=== PATIENT | female | born 1960 | race Caucasian/White ===

== ENCOUNTER → 2025-06-16 15:20 | Outpatient (BNV) | payer MEDICARE, MEDICAID, SELFPAY | PROVIDERS: PCP Internal Medicine; Referring Provider Internal Medicine; Visit Provider Internal Medicine | DX: C21.0 Malignant neoplasm of anus, unspecified (principal); C77.5 Secondary and unspecified malignant neoplasm of intrapelvic lymph nodes; C79.51 Secondary malignant neoplasm of bone | CPT/HCPCS: 99205; G2211 ==

== ENCOUNTER 2025-07-14 09:20 | Outpatient (REF) | payer MEDICARE, SELFPAY ==
--- NOTE | ~2025-07-14 | CT_ITS ---
EXAMINATION: CT ABDOMEN PELVIS WITH IV CONTRAST HISTORY: Stage IV anal cancer, evaluate for recurrence COMPARISON: There are no prior studies for available comparison. TECHNIQUE: CT scan of the abdomen and pelvis was performed following administration of 85 mL Omnipaque 350 using standard departmental protocol. Coronal and sagittal reformatted images were generated and reviewed. This CT exam was performed with one or more of the following dose reduction techniques: automated exposure control, adjustment of the mA and/or kV according to patient size, use of iterative reconstruction technique. DLP: 62 1 mGy-cm FINDINGS: LOWER CHEST: See chest CT report from the same day. LIVER: The liver is normal in size and contour. No liver mass is identified. The hepatic and portal veins are patent. GALLBLADDER / BILE DUCTS: The gallbladder is unremarkable. There is no intra or extrahepatic biliary ductal dilatation. SPLEEN: The spleen is normal in size. No focal splenic lesion is identified. PANCREAS: The pancreas is unremarkable in appearance. ADRENAL GLANDS: Within normal limits. KIDNEYS/RETROPERITONEUM: 1.3 cm left renal cyst. No renal calculi are identified. There is no hydronephrosis. No renal masses are identified. LYMPH NODES: There are no enlarged lymph nodes. There are small bilateral inguinal lymph nodes. VASCULATURE: Normal. No aneurysm. MESENTERY/PERITONEUM: No free fluid. No masses. There is no free intraperitoneal gas. STOMACH: Normal SMALL BOWEL: The small bowel is normal in caliber. COLON: There is diffuse wall thickening of the colon suggestive of sunshine colitis. This is greatest in the distal colon. There is diffuse circumferential wall thickening of the rectum suggestive of proctitis. There is circumferential wall thickening of the anus. No focal lesion/mass appreciated. No evidence of obstruction. APPENDIX: Normal. URINARY BLADDER/PELVIC ORGANS: The urinary bladder is unremarkable. There are small calcifications in the right side of the uterus. No pelvic mass. BONES / SOFT TISSUES: Degenerative changes of the spine. No focal lesion. Diastases of the rectus muscles and multiple paraumbilical hernias containing fat. Fat stranding in the left lower abdominal wall, question related to previous surgery. 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 No mass seen. No enlarged lymph nodes. Multiple periumbilical hernias containing fat. Small left renal cyst. Electronically signed by: Korin Hamilton MD 07/14/2025 10:53 AM EDT
--- NOTE | ~2025-07-14 | CT_ITS ---
EXAMINATION: CT CHEST WITH CONTRAST CLINICAL INFORMATION: Stage IV anal cancer, evaluate for recurrence COMPARISON: None available. TECHNIQUE: Multidetector volumetric CT imaging of the chest was obtained after the administration of 50 mL of Omnipaque 350 intravenous contrast without immediate adverse reactions. Axial MIP volume rendering provided. Sagittal and coronal reformatted images were obtained. This CT examination was performed using dose optimization techniques as appropriate, variously including the following: *Automated exposure control *Adjustment of mA and/or kV according to patient size (this includes techniques or standardized protocols for targeted exams where dose is matched to indication/reason for exam; i.e. extremities or head) *Use of iterative reconstruction technique FINDINGS: LUNGS: Axial CT #4 Image 21: Right lateral apical subpleural nodule measures 5 x 8 mm. It has angular margins. Sagittal image 65: Posterior medial right apex solid nodule measures 5 x 8 mm. Image 20: Posterior right apical solid nodule measures 4 mm. MEDIASTINUM: There is a 10 mm low attenuating nodule deep in the left lobe of thyroid gland. PLEURA: There is no pleural effusion. No pleural mass or thickening. AXILLA: No lymphadenopathy. OSSEOUS STRUCTURES: No lytic or blastic lesions are evident. There are prominent enhancing paraspinal vessels in the lower cervical and upper thoracic spine. CT/CT chest w IV con IMPRESSION: 3 right apical solid pulmonary nodules are identified. Metastatic disease cannot be ruled out. 10 mm left thyroid nodule. Follow-up ultrasound for further characterization. Fleischner guidelines were followed. Electronically signed by: Jose Cosme MD 07/14/2025 10:46 AM EDT
[2025-07-14] MEDS: iohexoL 350 MG/ML 100 ML INFUS..BTL 85 ML IV (09:41)
--- OUTSIDE RECORDS SUMMARY | 2025-07-14 10:30 | XMS_ITS | Clinical Summary ---
Author Organization [employer] Address [address] [facility] [address] [place] [address] Care Team Providers Care Superintendent Drilling Name Role Phone Michelle Sheehan MD Primary Care Provide r Allergies No known active allergies Medications * This document contains information received from the source organization and may not represent a complete record from that organization. bisacodyl (Dulcolax) 5 MG EC tabletIndications :Slow transit constipation Take 1 tablet (5 mg) by mouth if needed each day for constipatio n. Do not crush, chew, or split. 30 tablet 3 06/02/2025 09/30/19 26 Active Calcium Carb-Cholecalcife rol (Calcium + Vitamin D3) 600-10 MG-MCG tabletIndications :Anal cancer (CMS/HCC) (HCC) Take 1 tablet by mouth Once per day. 90 tablet 1 06/02/2025 Active Active Problems Problem Noted Date Diagnosed Date Anal cancer (CMS/HCC) 06/02/2025 Assessment & Plan (06/02/2025 12:08 PM EDT): Patient has records I will refer her to hematology oncology in [facility] Diminished vision 06/02/2025 Assessment & Plan (06/02/2025 12:07 PM EDT): Will refer patient to optometry Slow transit constipation 06/02/2025 Assessment & Plan (06/02/2025 12:08 PM EDT): Counseling about diet to increase water and fiber and more frequent walks done today I will refill her Dulcolax Chronic bursitis of right shoulder 06/02/2025 Assessment & Plan (06/02/2025 12:08 PM EDT): I will order an x-ray and refer patient to orthopedics Primary osteoarthritis of right knee 06/02/2025 Assessment & Plan (06/02/2025 12:08 PM EDT): She may take for now acetaminophen as needed Encounters * This document contains information received from the source organization and may not represent a complete record from that organization. Date Type Department Care Team Description 06/22/[address] [id number] Michelle Sheehan MD dec recall 06/08/[address] [id number] Michelle Sheehan MD Referral 06/02/2025 10:15 AM EDT Office Visit [address] [id number] Michelle Sheeahn MD Primary osteoarthritis of right knee (Primary Dx); Anal cancer (CMS/HCC); Diminished vision; Slow transit constipation; Chronic bursitis of right shoulder 06/02/2025 Travel 05/28/[address] [address] Kavita Toro FNP [employer] from Last 3 Months Social History Tobacco Use Types Packs/Day Years Used Date Smoking Tobacco: Never Tobacco Cessation:Counseling Given: Not Answered Comments Unknown Sex and Gender Information Value Date Recorded Sex Assigned at Female 05/28/2025 8:37 AM EDT Legal Sex Female 11:34 AM EDT Gender Identity Female 05/28/2025 8:37 AM EDT Sexual Orientation Straight 05/28/2025 8: 37 AM EDT Last Filed Vital Signs Vital Sign Reading Time Taken Comments Blood Pressure 94/72 06/02/2025 10:15 AM EDT Pulse 75 06/02/2025 10:15 AM EDT Temperature 36 C (96.8 F) 06/02/2025 10:15 AM EDT Respiratory Rate 15 06/02/2025 10:15 AM EDT Oxygen Saturation 99% 06/02/2025 10:15 AM EDT Inhaled Oxygen Concentration - - Weight 66.2 kg (146 lb) 06/02/2025 10:15 AM EDT Height 157.5 cm (5' 2 ) 06/02/2025 10:15 AM EDT Body Mass Index 26.7 06/02/2025 10:15 AM EDT Plan of Treatment Upcoming Encounters Date Type Department Care Team (Late st Contact Info) Description 07/23/2025 11:15 AM EST Telemedicine [facility] [address] [place] [address] Michelle Sheehan MD [address] [place], [place] [phone] Health Maintenance Due Date Last Done Comments CT Colonography 1961 Colonoscopy 1961 Colorectal Cancer Screening 1961 Depression Screening 1961 FIT DNA/Cologuard 1961 FIT 1961 FOBT 1961 HIV Screening 1961 SDOH Screening 1961 Sigmoidoscopy 1961 Disability Screening 1961 Alcohol/Substance Use Screening 1973 Hepatitis C Screening 1979 DTaP/Tdap/Td Vaccines (1 - Tdap) 1980 Pap Smear 1982 Cervical Cancer Screening 1991 HPV/Cotest 1991 Mammogram 2001 Pneumococcal Vaccine: 50+ Ye ars (1 of 1 - PCV) 2011 Zoster Vaccines (1 of 2) 2011 COVID-19 Vaccine (1 - 2023-2 5 season) 2025 Influenza Vaccine (#1) 2025 Tobacco Screening 06/02/2026 06/02/2025 RSV Patients and Pa tients Aged 60 years or older (1 - 1-dose 75+ series) 2036 HIB Vaccines Aged Out No longer eligi ble based on patient's age to complete this topic HPV Vaccines Aged Out No longer eligi ble based on patient's age to complete this topic Hepatitis A Vaccines Aged Out No long er eligible based on patient's age to complete this topic Hepatitis B Vaccines Aged Out No long er eligible based on patient's age to complete this topic IPV Vaccines Aged Out No longer eligi ble based on patient's age to complete this topic Meningococcal B Vaccine Aged Out No l onger eligible based on patient's age to complete this topic Meningococcal Vaccine Aged Out No marie beny eligible based on patient's age to complete this topic RSV under 20 months Aged Out No longe r eligible based on patient's age to complete this topic Rotavirus Vaccines Aged Out No longer eligible based on patient's age to complete this topic Insurance MEDICARE Member Subscriber Plan / Payer ( fective 2025-Present) Name:Esther Borrero Member ID:[id number] Relation to Subscriber:Self Name:Esther Borrero Subscriber ID:[id number] Payer ID:STATE Group ID:Not on file Type:Medicare Address: [facility], [facility] [address] [address] [facility] Care Teams Superintendent Drilling Relationship Specialty Start Date End Date Michelle Sheehan MD [address] [place] [id number] PCP - General Internal Medicine 06/02/25
== END 2025-07-14 09:21 | disposition home or self-care (01) ==
LOC: HO.CT 09:20
PROVIDERS: PCP Internal Medicine; Visit Provider Internal Medicine
DX: C21.0 Malignant neoplasm of anus, unspecified (principal)
CPT/HCPCS: 71260; 74177; Q9967

== ENCOUNTER → 2025-07-14 09:24 | Outpatient (BNV) | payer MEDICARE, SELFPAY | PROVIDERS: PCP Internal Medicine; Visit Provider Radiology Diagnostic Radiology | DX: K42.9 Umbilical hernia without obstruction or gangrene (principal); N28.1 Cyst of kidney, acquired; R91.8 Other nonspecific abnormal finding of lung field; E04.1 Nontoxic single thyroid nodule | CPT/HCPCS: 71260; 74177 ==

== ENCOUNTER 2025-07-22 09:54 | Outpatient (AMB) | payer OTHER, SELFPAY ==
[2025-07-22 10:09] VITALS: BP 112/67; PULSE 112; BMI 26.2
--- NOTE | 2025-07-22 10:09 | MHC.OFFVIS ---
Vital Signs 07/22/25 10:09 Height 5 ft 2 in Weight 143 lb BMI 26.2 BP 112/67 Blood Pressure Location Rt brachial Position Sitting Pulse 112 H Intake Visit Reasons: stage 4 anal cancer & proctocolitis Intake Note: Patient referred by Dr. Jacobsen for assessment and treatment of Stage 4 anal CA and Proctocolitis. Patient c/o: recently moved to [facility] from [place]. Previous txt for anal CA in 2022. Treatment included radiation and chemotherapy. Last chemotherapy June 2024. Only completed 06/01 radiation treatments due to skin [place] on vagina area. Feels treatment did help. Reports last visit w/Dr. Mark Rodriguez HEM/ ONC 04-01-2025. Previous Colorectal surgeon Zaki Calix, last visit 03-03-2025. Hx of Colostomy 06-20-23, Flexible sigmoidoscopy 10-08-2023. Imaging: Chest CT & abdomen pelvis CT~ 07-14-2025 PCP: Michelle Vance Signals Analyst Required: Yes Accompanied by: Self / Same As Patient Allergies No Known Allergies Allergy (Verified 07/22/25 10:21) Medication List - Last Reconciled 07/22/25 by Saman Bush MD bisacodyl 5 mg PO DAILY calc-D3-mag yj-[id number]-gzso-Zn-col 600 mg-25 mcg- 50 mg 1 tab PO DAILY HPI HPI stage 4 anal cancer & proctocolitis: Details: [age] year old female referred for known anal cancer. She had been diagnosed to have squamous cell anal carcinoma in 2022 with a [place]. She had undergone chemotherapy and radiation. She had been noted to have bone metastasis at that time. Treatment was therefore palliative nature. She had moved to [place] in continued to have chemotherapy there until last year. She then here to [place] this year She says she was able to complete her chemotherapy but was unable to complete her radiation because of skin changes in the perineum She describes chronic constipation. She denies seeing blood per rectum. She says she has this chronic pelvic pain. She also complains of chronic pain in her anus. She did not have a colostomy in 2022 while undergoing treatments were squamous cell anal carcinoma. This was reversed last year in [place]. [facility] Medical History Colostomy care Squamous cell carcinoma of anal canal Family History Mother Stomach cancer Sister Cancer Sister Breast cancer Maternal Uncle Prostate CA Brother Lupus (systemic lupus erythematosus) Social History Household Members: Family Housing: House Patient Tobacco Use Status: Never used Tobacco service: No Current occupational status: disabled Review of Systems Const Denies chills and Denies fever(s) Card Denies chest pain, Denies dyspnea and Denies dyspnea on exertion Resp Denies cough, Denies dyspnea and Denies dyspnea on exertion GI Denies hematochezia, Denies change in bowel habits and Reports constipation Denies hematuria Musc Denies back pain and Denies limited range of motion Neuro Denies focal weakness and Denies convulsions Psych Denies depression and Denies mood swings Physical Exam Vital Signs: Last Vital Signs Pulse 112 H 07/22/25 10:09 BP 112/67 07/22/25 10:09 BMI result Body Mass Index 26.2 Const General: comfortable and no acute distress Orientation/consciousness: patient oriented x3 Neck Neck: Yes no lymphadenopathy Resp Auscultation: clear to auscultation bilaterally Cardio Rhythm: regular rhythm GI Other: No inguinal lymphadenopathy Rectal exam shows no perianal lesion Palpation (GI): Soft to palpation, nontender and no guarding Neuro General: patient oriented x3 Office Procedures Anoscopy She was in cruz-knife position. The anoscope was gently inserted. A full examination of the anal canal was done. There were no lesions seen within the reach of the anoscope. There was no ulceration or fissure. The anal lining appeared unremarkable although there was a little bit of what appeared to be mild fibrotic changes in the anal verge. There was no bleeding. [id number] Assessment & Plan Assessment & Plan (1) Anal squamous cell carcinoma: Code(s): C21.0 - Malignant neoplasm of anus, unspecified Category: Medical Plan: She has known metastatic anal squamous cell carcinoma. She had undergone treatment for this with chemotherapy and radiation Current anoscopy does not suggest any residual disease in the anus. She did have a CAT scan done last week showing suggestion of pulmonary nodules on the right side. This also suggested thickening of the rectum and the colon distally. Anoscopy does not suggest proctitis She denies any diarrhea. I would recommend keeping her up for the pulmonary nodules to see if this represents metastatic disease. With regards to the anus, I did not see any residual disease at this time I did tell her that I would see her again in the office in about 6 months and re-evaluate. In the meantime, we are assisting her in being seen by Dr. Jacobsen again. She seems to understand the plan well. Coding Level of Care Code New Pt Level 4 (50168) Diagnoses Anal squamous cell carcinoma C21.0 CPT Codes Details - CPT: 74548-Hhooptem ([id number])
== END 2025-07-22 10:53 | disposition home or self-care (01) ==
PROVIDERS: PCP Internal Medicine; Visit Provider Surgery
DX: C21.0 Malignant neoplasm of anus, unspecified (principal)
CPT/HCPCS: 46600; 99204

== ENCOUNTER → 2025-07-22 09:54 | Outpatient (BNVA) | payer OTHER, SELFPAY | PROVIDERS: PCP Internal Medicine; Visit Provider Surgery | DX: Z71.2 Person consulting for explanation of examination or test findings (principal); C21.0 Malignant neoplasm of anus, unspecified | CPT/HCPCS: 46600; 99202 ==

== ENCOUNTER 2025-07-23 12:30 | Outpatient (REF) | payer OTHER, SELFPAY ==
--- NOTE | ~2025-07-23 | US_ITS ---
EXAMINATION: US THYROID HISTORY: 10 mm thyroid nodule deep in the left thyroid gland TECHNIQUE: Real-time grayscale ultrasound imaging was performed and images were reviewed. COMPARISON: Correlation is made with a chest CT with contrast dated 07/14/2025. FINDINGS: SIZE: The right thyroid lobe measures 4.8 x 2.1 x 1.7 cm. The left thyroid lobe measures 4.2 x 2.1 x 1.7 cm. The isthmus measures 7 mm. FLOW: Flow to the gland is normal. ECHOGENICITY: The echotexture of the gland is homogeneous. NODULES: There is a 4 mm spongiform nodule in the midportion of the right thyroid lobe. There is a 14 x 8 x 9 mm cyst at the mid to lower pole of the left thyroid lobe corresponding to the abnormality noted on CT. No solid nodules are identified. US/US thyroid IMPRESSION: 14 x 8 x 9 mm cyst in the mid to lower pole of the left thyroid lobe corresponding to the abnormality noted on CT. No solid nodule is identified. ACR TI-RADS Guidelines TR1 (0 points): Benign. No follow-up or biopsy required TR2 (2 points): Not Suspicious. No biopsy or follow up indicated TR3 (3 points): Mildly Suspicious. FNA if >= 2.5 cm, Follow if >= 1.5 cm TR4 (4-6 points): Moderately Suspicious. FNA if >= 1.5 cm, Follow if >= 1.0 cm TR5 (>=7 points): Highly Suspicious. FNA if >= 1.0 cm, Follow if >= 0.5 cm Electronically signed by: Cristofer Haywood MD 07/23/2025 01:15 PM [facility]
--- OUTSIDE RECORDS SUMMARY | 2025-07-23 11:15 | XMS_ITS | Encounter Summary ---
Author Organization [employer] Address [address] [place] [address] [address] [place] [address] Care Team Providers Care Mussel Farmer Name Role Phone Michelle Sheehan MD Primary Care Provide r Reason for Referral * Consultation (Routine) - Authorized Specialty Diagnoses / Procedures Referred By Contac t Referred To Contact Orthopaedic Surgery Diagnoses Bilateral chronic knee pain Primary osteoarthritis of right knee Michelle Sheehan MD [address] [place] [phone] Phone: tel: fax: [facility] [place] Orth[facility] [address] [place] [address] Phone: tel: Referral ID Status Reason Start Date Expiration Date Visits Requested Visits Authorized [id number] Authorized Specialty Services Required 07/23/2025 07/23/2026 1 1 Encounter Details Date Type Department Care Team (Latest Contact Info) Description 07/23/2025 11:15 AM EST Telemedicine [facility] MEDICINE [address] [place] [phone] Michelle Sheehan MD [address] [place] [address] [phone] Anal cancer (CMS/HCC) (HCC) (Primary Dx); Bilateral chronic knee pain; Primary osteoarthritis of right knee; Chronic bursitis of right shoulder Social History Tobacco Use Types Packs/Day Years Used Date Smoking Tobacco: Never Depression Answer Date Recorded Patient Health Questionnaire-9 Score 1 07/23/2025 Patient Health Questionnaire-9 Score 1 07/23/2025 Last PHQ-9: Questionnaire Data Not on file 1 09/22/2024 Housing Stability Answer Date Recorded What is your housing situation today? I do not have housing (Staying with others, in a hotel, in a retirement, living outside on the street, on a beach, in a car, or in a park 07/23/[address] you li ve. Do you have problems with any of the following? I am not sure 07/23/2025 Food Insecurity Answer Date Recorded Within the past 12 months, y ou worried that your food would run out before you got money to buy more: Never True 07/23/2025 Within the past 12 months,th e food you bought just didn't last and you didn't have enough money to get more: Never True 02/2025 Transportation Answer Date Recorded In the past 12 months, has l ack of transportation kept you from medical appts, meetings, work or from getting things needed for daily living? No 07/23/2025 Utilities Answer Date Recorded In the past 12 months, has t he electric, gas, oil or water company threatened to shut off services in your home? I am not sure 07/23/2025 Depression Answer Date Recorded Patient Health Questionnaire-2 Score 1 07/23/2025 Internet Access Answer Date Recorded Internet Access Q1 I am not sure 07/23/2025 Internet Access Q2 Not on file 07/23/2025 Comments Unknown Sex and Gender Information Value Date Recorded Sex Assigned at Female 05/28/2025 8:37 AM EDT Legal Sex Female 11:34 AM EDT Gender Identity Female 05/28/2025 8:37 AM EDT Sexual Orientation Straight 05/28/2025 8: 37 AM EDT documented as of this encounter Functional Status * Over the past 2 weeks, how often have you been bothered by any of the following problems? Question Answer Date of Assessment Author Patient Health Questionnaire-2 Score 1 02/2025 11:09 AM Asya Villalobos MA * Little interest or pleasure in doing things Answer Date of Assessment Author Not at all 07/23/2025 11:09 AM Tristan Villalobos MA * Feeling down, depressed, or hopeless Answer Date of Assessment Author Several days 07/23/2025 11:09 AM Tristan Villalobos MA * Trouble falling or staying asleep, or sleeping too much Answer Date of Assessment Author Not at all 07/23/2025 11:09 AM Tristan Villalobos MA * Feeling tired or having little energy Answer Date of Assessment Author Not at all 07/23/2025 11:09 AM Tristan Villalobos MA * Poor appetite or overeating Answer Date of Assessment Author Not at all 07/23/2025 11:09 AM Tristan Villalobos MA * Feeling bad about yourself - or that you are a failure or have let yourself or your family down Answer Date of Assessment Author Not at all 07/23/2025 11:09 AM Tristan Villalobos MA * Trouble concentrating on things, such as reading the newspaper or watching television Answer Date of Assessment Author Not at all 07/23/2025 11:09 AM Tristan Villalobos MA * Moving or speaking so slowly that other people could have noticed? Or the opposite - being so fidgety or restless that you have been moving around a lot more than usual. Answer Date of Assessment Author Not at all 07/23/2025 11:09 AM Tristan Villalobos MA * Thoughts that you would be better off or hurting yourself in some way Answer Date of Assessment Author Not at all 07/23/2025 11:09 AM Tristan Villalobos MA * Patient Health Questionnaire-9 Score Answer Date of Assessment Author 1 07/23/2025 11:09 AM Tristan Villalobos MA * Over the last 2 weeks, how often have you been bothered by any of the following problems? Question Answer Date of Assessment Author Feeling nervous, anxious, or on edge 1 02/2025 11:08 AM Asya Villalobos MA Not being able to stop or co ntrol worrying 2 07/23/2025 11:08 AM Asya Villalobos MA Worrying too much about diff erent things 2 07/23/2025 11:08 AM Asya Villalobos MA Trouble relaxing 0 07/23/2025 11:08 AM Asya Villalobos MA Being so restless that it is hard to sit still 0 07/23/2025 11:08 AM Asya Villalobos MA Becoming easily annoyed or irritable 0 02/2025 11:08 AM Asya Villalobos MA Feeling afraid as if somethi ng awful might happen 0 07/23/2025 11:08 AM Asya Villalobos MA SHILPA-7 Total Score 5 07/23/2025 11:08 AM Asya Villalobos MA documented as of this encounter Progress Notes * Michelle Enciso MD - 07/23/2025 11:15 AM EST SUBJECTIVE: Esther Borrero is a 65 y.o. year old female who presents for Follow up . 65 year old female who is establishing care, past medical history significant for stage IV anal cancer diagnosed in April 2023 in [place]. 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 She was started on palliative chemotherapy with carboplatin/Taxol which she received for 3 months in [place]. She moved to [place] in July 2023 and she continued to receive treatment until May 2024. She underwent palliative radiation therapy to pelvic bones Acute Concerns: Patient is being follow now by hematology/oncology Dr Jacobsen, labs and imagines where done, she reports she feels well she does have some pain on her pelvic area (pelvic bones) no other complains Patient reports she has being having pain on her right shoulder an both knees for which she takes acetaminophen as needed Social History Social History Narrative Not on file Problem List[1] Anal cancer (CMS/HCC) (HCC) Diminished vision Slow transit constipation Chronic bursitis of right shoulder Primary osteoarthritis of right knee Bilateral chronic knee pain Family History[2] Review of Systems Constitutional: Negative. HENT: Negative. Respiratory: Negative. Cardiovascular: Negative. Musculoskeletal: Positive for arthralgias. Follow Up: Follow up in about 6 months (around 01/20/2026) for chronic conditions . Medications Ordered Prior to Encounter[3] Problem List Items Addressed This Visit Anal cancer (CMS/HCC) (HCC) - Primary Continue to follow with hematology/oncology Bilateral chronic knee pain Acetaminophen as needed Orthopedics referral Relevant Orders Referral to Orthopaedic Surgery Primary osteoarthritis of right knee Acetaminophen as needed Orthopedics referral Relevant Orders Referral to Orthopaedic Surgery Chronic bursitis of right shoulder Patient has an appointment with orthopedics on 09/04/25 I advise not to miss her appointment Acetaminophen as needed [1] Patient Active Problem List Diagnosis Anal cancer (CMS/HCC) (HCC) Diminished vision Slow transit constipation Chronic bursitis of right shoulder Primary osteoarthritis of right knee Bilateral chronic knee pain [2] No family history on file. [3] Current Outpatient Medications on File Prior to Visit Medication Sig Dispense Refill bisacodyl (Dulcolax) 5 MG EC tablet Take 1 tablet (5 mg) by mouth if needed each day for constipation. Do not crush, chew, or split. 30 tablet 3 Calcium Carb-Cholecalciferol (Calcium + Vitamin D3) 600-10 MG-MCG tablet Take 1 tablet by mouth Once per day. 90 tablet 1 No current facility-administered medications on file prior to visit. documented in this encounter Miscellaneous Notes * Assessment & Plan Note - Michelle Enciso MD - 07/23/2025 12:29 PM EST Associated Problem(s): Primary osteoarthritis of right knee Acetaminophen as needed Orthopedics referral * Assessment & Plan Note - Michelle Enciso MD - 07/23/2025 12:29 PM EST Associated Problem(s): Chronic bursitis of right shoulder Patient has an appointment with orthopedics on 09/04/25 I advise not to miss her appointment Acetaminophen as needed * Assessment & Plan Note - Michelle Enciso MD - 07/23/2025 12:28 PM EST Associated Problem(s): Bilateral chronic knee pain Acetaminophen as needed Orthopedics referral * Assessment & Plan Note - Michelle Enciso MD - 07/23/2025 12:28 PM EST Associated Problem(s): Anal cancer (CMS/HCC) (HCC) Continue to follow with hematology/oncology documented in this encounter Plan of Treatment Scheduled Referrals Name Type Priority Associated Diagnoses Orde r Schedule Referral to Orthopaedic Surgery Outpatient Referral Routine Bilateral chronic knee pain Primary osteoarthritis of right knee Expected: 07/23/2025 (Approximate), Expires: 07/23/2026 documented as of this encounter Visit Diagnoses Diagnosis Anal cancer (CMS/HCC) (HCC)- Primary Malignant neoplasm of anus, unspecified site Bilateral chronic knee pain Primary osteoarthritis of right knee Chronic bursitis of right shoulder documented in this encounter Additional Health Concerns Assessment Noted Time PHQ-9 Depression Total Score: 1 07/23/20 11:09 AM EST documented as of this encounter Care Teams Mussel Farmer Relationship Specialty Start Date End Date Michelle Sheehan MD [address] [place] [phone] PCP - General Internal Medicine 06/02/25 documented as of this encounter
--- OUTSIDE RECORDS SUMMARY | 2025-07-23 15:22 | XMS_ITS | Encounter Summary ---
Author Organization [employer] Address [address] [facility] [address] [place] [address] Care Team Providers Care Oxygen Therapy Teacher Name Role Phone Michelle Sheehan MD Primary Care Provide r Encounter Details Date Type Department Care Team (Latest Contact Info) Description 07/23/2025 Travel Social History Tobacco Use Types Packs/Day Years Used Date Smoking Tobacco: Never Depression Answer Date Recorded Patient Health Questionnaire-9 Score 1 07/23/2025 Patient Health Questionnaire-9 Score 1 07/23/2025 Last PHQ-9: Questionnaire Data Not on file 1 09/22/2024 Housing Stability Answer Date Recorded What is your housing situation today? I do not have housing (Staying with others, in a hotel, in a prison, living outside on the street, on a [...] Villalobos MA documented as of this encounter Plan of Treatment Not on file documented as of this encounter Visit Diagnoses Not on filedocumented in this encounter Additional Health Concerns Assessment Noted Time PHQ-9 Depression Total Score: 1 07/23/20 11:09 AM EST documented as of this encounter Care Teams Oxygen Therapy Teacher Relationship Specialty Start Date End Date Michelle Sheehan MD [address] [place] [address] PCP - General Internal Medicine 06/02/25 documented as of this encounter
--- OUTSIDE RECORDS SUMMARY | 2025-07-23 15:22 | XMS_ITS | Clinical Summary ---
Author Organization [employer] Address [address] [facility] [address] [place] [address] Care Team Providers Care Yarn Winder Name Role Phone Michelle Sheehan MD Primary [...] D3) 600-10 MG-MCG tabletIndications :Anal cancer (CMS/HCC) ([facility]) Take 1 tablet by mouth Once per day. 90 tablet 1 06/02/2025 Active Active Problems Problem Noted Date Diagnosed Date Bilateral chronic knee pain 07/23/2025 Assessment & Plan (07/23/2025 12:28 PM EST): Acetaminophen as needed Orthopedics referral Anal cancer (CMS/HCC) 06/02/2025 Assessment & Plan (07/23/2025 12:28 PM EST): Continue to follow with hematology/oncology Assessment & Plan (06/02/2025 12:08 PM EDT): Patient has records I will refer her to hematology oncology in [facility] 06/02/2025 Assessment & Plan (06/02/2025 12:07 PM EDT): Will refer patient to optometry Slow transit constipation 06/02/2025 Assessment & Plan (06/02/2025 12:08 PM EDT): Counseling about diet to increase water and fiber and more frequent walks done today I will refill her Dulcolax Chronic bursitis of right shoulder 06/02/2025 Assessment & Plan (07/23/2025 12:29 PM EST): Patient has an appointment with orthopedics on 09/04/25 I advise not to miss her appointment Acetaminophen as needed Assessment & Plan (06/02/2025 12:08 PM EDT): I will order an x-ray and refer patient to orthopedics Primary osteoarthritis of right knee 06/02/2025 Assessment & Plan (07/23/2025 12:29 PM EST): Acetaminophen as needed Orthopedics referral Assessment & Plan (06/02/2025 12:08 PM EDT): She may take for now acetaminophen as needed Encounters * This document contains information received from the source organization and may not represent a complete record from that organization. Date Type Department Care Team Description 07/23/2025 11:15 AM EST Telemedicine [facility] [address] [place] [phone] Michelle Sheehan MD Anal cancer (CMS/HCC) (HCC) (Primary Dx); Bilateral chronic knee pain; Primary osteoarthritis of right knee; Chronic bursitis of right shoulder 07/23/2025 Travel 07/14/2025 Orders Only [facility] External Provider, [facility] 06/22/2025 Telephone [facility] [address] [place] [phone] Michelle Sheehan MD dec recall 06/08/[address] [address] Michelle Sheehan MD Referral 06/02/2025 10:15 AM EDT Office Visit [facility] [address] [place] [address] Michelle Sheehan MD Primary osteoarthritis of right knee (Primary Dx); Anal cancer (CMS/HCC); Diminished vision; Slow transit constipation; Chronic bursitis of right shoulder 06/02/2025 Travel 05/28/2025 Telephone [facility] [address] [place] [address] Kavita Toro FNP [employer] SAL[employer] from Last 3 Months Social History Tobacco Use Types Packs/Day Years Used Date Smoking Tobacco: Never Tobacco Cessation:Counseling Given: Not Answered Depression Answer Date Recorded Patient Health Questionnaire-9 Score 1 07/23/2025 Patient Health Questionnaire-9 Score 1 07/23/2025 Last PHQ-9: Questionnaire Data Not on file 1 09/22/2024 Housing Stability Answer Date Recorded What is your housing situation today? I do not have housing (Staying with others, in a hotel, in a nursing home, living outside on the street, on a [...] 06/02/2025 10:15 AM EDT Plan of Treatment Health Maintenance Due Date Last Done Comments CT Colonography 1961 Colonoscopy 1961 Colorectal Cancer Screening 1961 FIT DNA/Cologuard 1961 FIT 1961 FOBT 1961 HIV Screening 1961 Sigmoidoscopy 1961 Hepatitis C Screening 1979 DTaP/Tdap/Td Vaccines (1 - Tdap) 1980 Pap Smear 1982 Cervical Cancer Screening 1991 HPV/Cotest 1991 Mammogram 2001 Pneumococcal Vaccine: 50+ Years (1 of 1 - PCV) 2011 Zoster Vaccines (1 of 2) 2011 COVID-19 Vaccine (1 - 2023-2 5 season) 2025 Influenza Vaccine (#1) 2025 Tobacco Screening 06/02/2026 06/02/2025 Alcohol/Substance Use Screening 07/23/2026 07/23/2025 Depression Screening 07/23/2026 07/23/2025, 07/23/2025 Disability Screening 07/23/2026 07/23/2025 SDOH Screening 07/23/2026 07/23/2025 RSV Patients and Patients Aged 60 years or older (1 - [...] on patient's age to complete this topic Procedures Procedure Name Priority Date/Time Associated Diagnosis Comments CT ABDOMEN PELVIS W CONTRAST Routine 07/14/2025 9:[address] CHEST W CONTRAST Routine 07/14/2025 9 :52 AM EDT from Last 3 Months Results * CT Abdomen Pelvis w/ Contrast (07/14/2025 9:52 AM EDT) Anatomical Region Laterality Modality Body, Pelvis, Abdomen Computed T omography 07/14/2025 9:52 AM EDT Narrative 07/14/2025 10:56 AM EDT [place] [address] CT Scan Report Signed with Fabiola Patient: Esther Borrero MR#: [id number] : 1960 Acct:[id number] Age/Sex: 65 / F ADM Date: 07/14/25 Loc: HO.CT Attending Dr: Tiarra Jacobsen MD Ordering Physician: Tiarra Jacobsen MD Date of Service: 07/14/25 Procedure(s): CT abdomen pelvis w IV con Accession Number(s): [id number] cc: Michelle Sheehan MD; Tiarra Jacobsen MD Report Number: [id number]: Total DLP = 0.00 mGy-cm Reason for Exam: Stage IV anal cancer, evaluate for recurrence ADDENDUM ADDENDUM #1 Addendum: There is increased soft tissue seen in the left pelvis posterior to the left lower rectum and abutting the left levator ani muscle measuring 2.4 x 3.9 cm axial image 576 series 4. This is worrisome for recurrent disease. This could be further evaluated with pelvic MRI if clinically warranted. Electronically signed by: Korin Hamilton MD 07/23/2025 02:05 PM [facility] Addendum Dictated By: Korin Hamilton MD Addendum Signed By: <Electronically signed by Korin Hamilton MD in OV> 07/23/25 1405 Addendum Cosigned By: DD/ TD/TT: 07/14/25 EXAMINATION: CT ABDOMEN PELVIS WITH IV CONTRAST HISTORY: Stage IV anal cancer, evaluate for recurrence COMPARISON: There are no prior studies for available comparison. TECHNIQUE: CT scan of the abdomen and pelvis was performed following administration of 85 mL Omnipaque 350 using standard departmental protocol. Coronal and sagittal reformatted images were generated and reviewed. This CT exam was performed with one or more of the following dose reduction techniques: automated exposure control, adjustment of the mA and/or kV according to patient size, use of iterative reconstruction technique. DLP: 62 1 mGy-cm FINDINGS: LOWER CHEST: See chest CT report from the same day. LIVER: The liver is normal in size and contour. No liver mass is identified. The hepatic and portal veins are patent. GALLBLADDER / BILE DUCTS: The gallbladder is unremarkable. There is no intra or extrahepatic biliary ductal dilatation. SPLEEN: The spleen is normal in size. No focal splenic lesion is identified. PANCREAS: The pancreas is unremarkable in appearance. ADRENAL GLANDS: Within normal limits. KIDNEYS/RETROPERITONEUM: 1.3 cm left renal cyst. No renal calculi are identified. There is no hydronephrosis. No renal masses are identified. LYMPH NODES: There are no enlarged lymph nodes. There are small bilateral inguinal lymph nodes. VASCULATURE: Normal. No aneurysm. MESENTERY/PERITONEUM: No free fluid. No masses. There is no free intraperitoneal gas. STOMACH: Normal SMALL BOWEL: The small bowel is normal in caliber. COLON: There is diffuse wall thickening of the colon suggestive of sunshine colitis. This is greatest in the distal colon. There is diffuse circumferential wall thickening of the rectum suggestive of proctitis. There is circumferential wall thickening of the anus. No focal lesion/mass appreciated. No evidence of obstruction. APPENDIX: Normal. URINARY BLADDER/PELVIC ORGANS: The urinary bladder is unremarkable. There are small calcifications in the right side of the uterus. No pelvic mass. BONES / SOFT TISSUES: Degenerative changes of the spine. No focal lesion. Diastases of the rectus muscles and multiple paraumbilical hernias containing fat. Fat stranding in the left lower abdominal wall, question related to previous surgery. 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 No mass seen. No enlarged lymph nodes. Multiple periumbilical hernias containing fat. Small left renal cyst. Electronically signed by: Korin Hamilton MD 07/14/2025 10:53 AM EDT Dictated By: Korin Hamilton MD Signed By: <Electronically signed by Korin Hamilton MD in OV> 07/14/25 1053 DD/ 0952 TD/TT: 07/14/25 1034 Electric Car Operator: JOHNATHON Procedure Note Donotuseinterpreter, Image - 07/23/[address] [place] [address] [address] Scan Report Signed with Addenda Patient: Esther Borrero#: [id number] : 1960cct:[id number] Age/Sex: 65 / FADM Date: 07/14/25 Loc: HO.CT Attending Dr: Tiarra Jacobsen MD Ordering Physician: Tiarra Jacobsen MD Date of Service: 07/14/25 Procedure(s): CT abdomen pelvis w IV con Accession Number(s): [id number] cc: Michelle Sheehan MD; Tiarra Jacobsen MD Report Number: [id number]: Total DLP = 0.00 mGy-cm Reason for Exam: Stage IV anal cancer, evaluate for recurrence ADDENDUM ADDENDUM #1 Addendum: There is increased soft tissue seen in the left pelvis posterior to the left lower rectum and abutting the left levator ani muscle measuring 2.4 x 3.9 cm axial image 576 series 4. This is worrisome for recurrent disease. This could be further evaluated with pelvic MRI if clinically warranted. Electronically signed by: Korin Hamilton MD 07/23/2025 02:05 PM [facility] Addendum Dictated By: Korin Hamilton MD Addendum Signed By: <Electronically signed by Korin Hamilton MD in OV> 07/23/25 1405 Addendum Cosigned By: DD/ TD/TT: 07/14/25 EXAMINATION: CT ABDOMEN PELVIS WITH IV CONTRAST HISTORY: Stage IV anal cancer, evaluate for recurrence COMPARISON: There are no prior studies for available comparison. TECHNIQUE: CT scan of the abdomen and pelvis was performed following administration of 85 mL Omnipaque 350 using standard departmental protocol. Coronal and sagittal reformatted images were generated and reviewed. This CT exam was performed with one or more of the following dose reduction techniques: automated exposure control, adjustment of the mA and/or kV according to patient size, use of iterative reconstruction technique. DLP: 62 1 mGy-cm FINDINGS: LOWER CHEST: See chest CT report from the same day. LIVER: The liver is normal in size and contour. No liver mass is identified. The hepatic and portal veins are patent. GALLBLADDER / BILE DUCTS: The gallbladder is unremarkable. There is no intra or extrahepatic biliary ductal dilatation. SPLEEN: The spleen is normal in size. No focal splenic lesion is identified. PANCREAS: The pancreas is unremarkable in appearance. ADRENAL GLANDS: Within normal limits. KIDNEYS/RETROPERITONEUM: 1.3 cm left renal cyst. No renal calculi are identified. There is no hydronephrosis. No renal masses are identified. LYMPH NODES: There are no enlarged lymph nodes. There are small bilateral inguinal lymph nodes. VASCULATURE: Normal. No aneurysm. MESENTERY/PERITONEUM: No free fluid. No masses. There is no free intraperitoneal gas. STOMACH: Normal SMALL BOWEL: The small bowel is normal in caliber. COLON: There is diffuse wall thickening of the colon suggestive of sunshine colitis. This is greatest in the distal colon. There is diffuse circumferential wall thickening of the rectum suggestive of proctitis. There is circumferential wall thickening of the anus. No focal lesion/mass appreciated. No evidence of obstruction. APPENDIX: Normal. URINARY BLADDER/PELVIC ORGANS: The urinary bladder is unremarkable. There are small calcifications in the right side of the uterus. No pelvic mass. BONES / SOFT TISSUES: Degenerative changes of the spine. No focal lesion. Diastases of the rectus muscles and multiple paraumbilical hernias containing fat. Fat stranding in the left lower abdominal wall, question related to previous surgery. 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 No mass seen. No enlarged lymph nodes. Multiple periumbilical hernias containing fat. Small left renal cyst. Electronically signed by: Korin Hamilton MD 07/14/2025 10:53 AM EDT Dictated By: Korin Hamilton MD Signed By: <Electronically signed by Korin Hamilton MD in OV> 07/14/25 1053 DD/ 0952 TD/TT: 07/14/25 1034 Electric Car Operator: JOHNATHON [facility] External Provider IMG CT PROCEDURES Edited Result - Final * CT Chest w/ Contrast (07/14/2025 9:52 AM EDT) Anatomical Region Laterality Modality Body, Chest Computed Tomogra phy 07/14/2025 9:52 AM EDT Narrative 07/14/2025 10:49 AM EDT [address] [address] [address] Scan Report Signed Patient: Esther Borrero MR#: [id number] : 1960 Acct:[id number] Age/Sex: 65 / F ADM Date: 07/14/25 Loc: HO.CT Attending Dr: Tiarra Jacobsen MD Ordering Physician: Tiarra Jacobsen MD Date of Service: 07/14/25 Procedure(s): CT chest w IV con Accession Number(s): [id number] cc: Michelle Sheehan MD; Tiarra Jacobsen MD Report Number: [id number]: Total DLP = 795.00 mGy-cm Reason for Exam: Stage IV anal cancer, evaluate for recurrence EXAMINATION: CT CHEST WITH CONTRAST CLINICAL INFORMATION: Stage IV anal cancer, evaluate for recurrence COMPARISON: None available. TECHNIQUE: Multidetector volumetric CT imaging of the chest was obtained after the administration of 50 mL of Omnipaque 350 intravenous contrast without immediate adverse reactions. Axial MIP volume rendering provided. Sagittal and coronal reformatted images were obtained. This CT examination was performed using dose optimization techniques as appropriate, variously including the following: *Automated exposure control *Adjustment of mA and/or kV according to patient size (this includes techniques or standardized protocols for targeted exams where dose is matched to indication/reason for exam; i.e. extremities or head) *Use of iterative reconstruction technique FINDINGS: LUNGS: Axial CT #4 Image 21: Right lateral apical subpleural nodule measures 5 x 8 mm. It has angular margins. Sagittal image 65: Posterior medial right apex solid nodule measures 5 x 8 mm. Image 20: Posterior right apical solid nodule measures 4 mm. MEDIASTINUM: There is a 10 mm low attenuating nodule deep in the left lobe of thyroid gland. PLEURA: There is no pleural effusion. No pleural mass or thickening. AXILLA: No lymphadenopathy. OSSEOUS STRUCTURES: No lytic or blastic lesions are evident. There are prominent enhancing paraspinal vessels in the lower cervical and upper thoracic spine. CT/CT chest w IV con IMPRESSION: 3 right apical solid pulmonary nodules are identified. Metastatic disease cannot be ruled out. 10 mm left thyroid nodule. Follow-up ultrasound for further characterization. Fleischner guidelines were followed. Electronically signed by: Jose Cosme MD 07/14/2025 10:46 AM EDT Dictated By: Jose Cosme MD Signed By: <Electronically signed by Jose Cosme MD in OV> 07/14/25 1046 DD/ 0952 TD/TT: 07/14/25 1034 Electric Car Operator: Procedure Note Donotuseinterpreter, Image - 07/14/[address] [address] [address] Scan Report Signed Patient: Esther BorreroMR#: [id number] : 1960cct:[id number] Age/Sex: 65 / FADM Date: 07/14/25 Loc: HO.CT Attending Dr: Tiarra Jacobsen MD Ordering Physician: Tiarra Jacobsen MD Date of Service: 07/14/25 Procedure(s): CT chest w IV con Accession Number(s): [id number] cc: Michelle Sheehan MD; Tiarra Jacobsen MD Report Number: [id number]: Total DLP = 795.00 mGy-cm Reason for Exam: Stage IV anal cancer, evaluate for recurrence EXAMINATION: CT CHEST WITH CONTRAST CLINICAL INFORMATION: Stage IV anal cancer, evaluate for recurrence COMPARISON: None available. TECHNIQUE: Multidetector volumetric CT imaging of the chest was obtained after the administration of 50 mL of Omnipaque 350 intravenous contrast without immediate adverse reactions. Axial MIP volume rendering provided. Sagittal and coronal reformatted images were obtained. This CT examination was performed using dose optimization techniques as appropriate, variously including the following: *Automated exposure control *Adjustment of mA and/or kV according to patient size (this includes techniques or standardized protocols for targeted exams where dose is matched to indication/reason for exam; i.e. extremities or head) *Use of iterative reconstruction technique FINDINGS: LUNGS: Axial CT #4 Image 21: Right lateral apical subpleural nodule measures 5 x 8 mm. It has angular margins. Sagittal image 65: Posterior medial right apex solid nodule measures 5 x 8 mm. Image 20: Posterior right apical solid nodule measures 4 mm. MEDIASTINUM: There is a 10 mm low attenuating nodule deep in the left lobe of thyroid gland. PLEURA: There is no pleural effusion. No pleural mass or thickening. AXILLA: No lymphadenopathy. OSSEOUS STRUCTURES: No lytic or blastic lesions are evident. There are prominent enhancing paraspinal vessels in the lower cervical and upper thoracic spine. CT/CT chest w IV con IMPRESSION: 3 right apical solid pulmonary nodules are identified. Metastatic disease cannot be ruled out. 10 mm left thyroid nodule. Follow-up ultrasound for further characterization. Fleischner guidelines were followed. Electronically signed by: Jose Cosme MD 07/14/2025 10:46 AM EDT Dictated By: Jose Cosme MD Signed By: <Electronically signed by Jose Cosme MD in OV> 07/14/25 1046 DD/ 0952 TD/TT: 07/14/25 1034 Electric Car Operator: [facility] External Provider IMG CT PROCEDURES Final Result from Last 3 Months Insurance [facility] < [address] [id number] Care Teams Yarn Winder Relationship Specialty Start Date End Date Michelle Sheehan MD [address] [place] [phone] PCP - General Internal Medicine 06/02/25
== END 2025-07-23 12:31 | disposition home or self-care (01) ==
LOC: HO.US 12:30
PROVIDERS: Visit Provider Nurse Practitioner Family
DX: E04.1 Nontoxic single thyroid nodule (principal)
CPT/HCPCS: 76536

== ENCOUNTER → 2025-07-23 12:32 | Outpatient (BNV) | payer OTHER, SELFPAY | PROVIDERS: Visit Provider Radiology Diagnostic Radiology | DX: E04.1 Nontoxic single thyroid nodule (principal) | CPT/HCPCS: 76536 ==

== ENCOUNTER → 2025-07-27 13:35 | Outpatient (BNV) | payer OTHER, SELFPAY | PROVIDERS: Visit Provider Radiology Diagnostic Radiology | DX: C21.0 Malignant neoplasm of anus, unspecified (principal) | CPT/HCPCS: 72197 ==

== ENCOUNTER 2025-07-27 13:48 | Outpatient (REF) | payer OTHER, SELFPAY ==
--- OUTSIDE RECORDS SUMMARY | 2025-07-23 11:15 | XMS_ITS | Encounter Summary ---
Author Organization [employer] Address [address] [place] [address] [address] [place] [address] Care Team Providers Care Electric Relay Tester Name Role Phone Michelle Sheehan MD Primary Care Provide r Reason for Referral * Consultation (Routine) - Authorized Specialty Diagnoses / Procedures Referred By Contac t Referred To Contact Orthopaedic Surgery Diagnoses Bilateral chronic knee pain Primary osteoarthritis of right knee Michelle Sheehan MD [address] [place] [phone] Phone: tel: fax: [facility] [place] Orth[facility] [address] [place] [address] Phone: tel: Referral ID Status Reason Start Date Expiration Date Visits Requested Visits Authorized [id number] Authorized Specialty Services Required 07/23/2025 07/23/2026 1 1 Encounter Details Date Type Department Care Team (Latest Contact Info) Description 07/23/2025 11:15 AM EST Telemedicine [facility] MEDICINE [address] [place] [phone] Michelle Sheehan MD [address] [place] [address] [phone] Anal cancer (CMS/HCC) (HCC) (Primary Dx); Bilateral [...] with others, in a hotel, in a [facility], living outside on the street, on a [...] anal cancer diagnosed in April 2023 in [place]. 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 She was started on palliative chemotherapy with carboplatin/Taxol which she received for 3 months in [place]. She moved to [place] in July 2023 and she continued to [...] documented as of this encounter Care Teams Electric Relay Tester Relationship Specialty Start Date End Date Michelle Sheehan MD [address] [place] [phone] PCP - General Internal Medicine 06/02/25 documented as of this encounter
--- NOTE | ~2025-07-27 | MR_ITS ---
EXAMINATION: MR PELVIS WITHOUT AND WITH CONTRAST CLINICAL INFORMATION: Anal cancer. Rule out metastatic disease. COMPARISON: Previous CT of the abdomen and pelvis July 14, 2025 TECHNIQUE: Sagittal axial and coronal sequences through the pelvis with and without IV contrast. Patient received 6.5 mL IV gadolinium venous contrast. FINDINGS: There is increased soft tissue seen in the left pelvis. This abuts the left side of the lower rectum from the 4-5 o'clock axis and abuts the left levator ani muscle. This is low signal on T1 weighted sequences and heterogeneous but primarily high signal on T2 weighted sequences. This demonstrates heterogeneous peripheral enhancement with a small nonenhancing central areas questionable for cystic change or necrosis. This abuts the left levator ani muscle. There is some abnormal signal and enhancement of the muscle suggestive of involvement. Appearance is concerning for metastatic or recurrent disease. Differential would include abscess. This measures 2 x 4 cm in AP and transverse dimension and 3.8 cm and longitudinal dimension..There is a small thin linear component that courses posterior to the lower rectum toward the right side that measures 0.4 x 1.2 cm adjacent to the 6-7 o'clock axis of the rectum. There is a haustral appearance and mild differential wall thickening of the colon and rectum questionable for proctocolitis. No ascites. There are small bilateral inguinal lymph nodes. No enlarged lymph nodes. Bladder ,uterus and adnexa appear unremarkable. There are innumerable low signal T1 high signal T2 enhancing bone lesions suggestive of metastatic disease. Largest lesion measure 1.8 cm in the L5 vertebral body, 1.2 x 1.9 cm in the right femoral neck, and 1.5 cm in the left femoral intratrochanteric region. Multiple smaller bone lesions, for example 1 cm lesion in the left L4 vertebral body, 1 cm lesion in both iliac crests and right iliac bone near the sacroiliac joint and to two 1.2 and 1.4 cm lesions in the left acetabulum. When compared with prior CT, some larger lesions appear faintly sclerotic. Postsurgical changes to the anterior abdominal wall. Small paraumbilical hernias containing fat. Probable postsurgical change from colostomy takedown site in the left lower abdominal wall. There is a 1.3 cm bright T2 lesion seen in the mid left kidney that when compared with prior CT probably represents a cyst. MR/MR pelvis wo/w con IMPRESSION: Abnormal soft tissue in the pelvis worrisome for recurrent or metastatic disease. This abuts the 4-5 o'clock axis of the left lower rectum and involves the adjacent levator ani muscle. Small thin linear component courses posterior to the rectum to the right along along the 6-7 o'clock axis. Innumerable bone lesions suggestive of metastatic disease. Mild circumferential wall thickening of the colon and rectum and ahaustral appearance of the colon questionable for proctocolitis. Electronically signed by: Korin Hamilton MD 07/28/2025 09:13 AM [place]
--- OUTSIDE RECORDS SUMMARY | 2025-07-27 16:02 | XMS_ITS | Encounter Summary ---
Author Organization [employer] Address [address] [facility] [address] [place] [address] Care Team Providers Care Film Splicer Name Role Phone Michelle Sheehan MD Primary [...] with others, in a hotel, in a fci, living outside on the street, on a [...] Assessment Author Several days 07/23/2025 11:09 AM Trisatn Villalobos [place] * Trouble falling or staying [...] documented as of this encounter Care Teams Film Splicer Relationship Specialty Start Date End Date Michelle Sheehan MD [address] [place] [address] PCP - General Internal Medicine 06/02/25 documented as of this encounter
--- OUTSIDE RECORDS SUMMARY | 2025-07-27 16:02 | XMS_ITS | Clinical Summary ---
Author Organization [employer] Address [address] [place] [address] Care Team Providers Care Shank Piece Tacker Name Role Phone Michelle Sheehan MD Primary [...] D3) 600-10 MG-MCG tabletIndications :Anal cancer (CMS/HCC) ([facility]) Take 1 tablet by mouth Once per [...] will refer her to hematology oncology in [facility] 06/02/2025 Assessment & Plan (06/02/2025 12:07 [...] Team Description 07/23/2025 11:15 AM EST Telemedicine [facility] [address] [place] [address] Michelle Sheehan MD Anal cancer (CMS/HCC) (HCC) (Primary Dx); Bilateral chronic knee pain; Primary osteoarthritis of right knee; Chronic bursitis of right shoulder 07/23/2025 Travel 07/14/2025 Orders Only [facility] External Provider, [facility] 06/22/2025 Telephone [facility] [address] [place] [phone] Michelle Sheehan MD dec recall 06/08/[address] [address] Michelle Sheehan MD Referral 06/02/2025 10:15 AM EDT Office Visit [facility] [address] [place] [address] Michelle Sheehan MD Primary osteoarthritis of right knee (Primary Dx); Anal cancer (CMS/HCC); Diminished vision; Slow transit constipation; Chronic bursitis of right shoulder 06/02/2025 Travel 05/28/2025 Telephone [facility] [address] [place] [address] Kavita Toro FNP LEGAL AID from Last 3 Months Social History Tobacco [...] with others, in a [place], in [place], living outside on the street, on a [...] AM EDT Narrative 07/14/2025 10:56 AM EDT [place] [address] [address] Scan Report Signed with Fabiola Patient: Esther Borrero MR#: [id number] : 1960 Acct:[id number] Age/Sex: 65 / F ADM Date: 07/14/25 Loc: HO.CT Attending Dr: Tiarra Jacobsen MD Ordering Physician: Tiarra Jacobsen MD Date of Service: 07/14/25 Procedure(s): CT abdomen pelvis w IV con Accession Number(s): [id number] cc: Michelle Sheehan MD; Tiarra Jacobsen MD Report Number: [id number]: Total DLP = 0.00 mGy-cm Reason for [...] by: Korin Hamilton MD 07/23/2025 02:05 PM [facility] Addendum Dictated By: Korin Hamilton MD Addendum [...] 07/14/25 1053 DD/ 0952 TD/TT: 07/14/25 1034 [employer] Driver: JOHNATHON Procedure Note Donotuseinterpreter, Image - 07/23/[address] [place] [address] [address] Scan Report Signed with Addenda Patient: Esther Borrero#: MM [id number] : 1960cct:[id number] Age/Sex: 65 / FADM Date: 07/14/25 Loc: HO.CT Attending Dr: Tiarra Jacobsen MD Ordering Physician: Tiarra Jacobsen MD Date of Service: 07/14/25 Procedure(s): CT abdomen pelvis w IV con Accession Number(s): [id number] cc: Michelle Sheehan MD; Tiarra Jacobsen MD Report Number: [id number]: Total DLP = 0.00 mGy-cm Reason for [...] by: Korin Hamilton MD 07/23/2025 02:05 PM [facility] Addendum Dictated By: Korin Hamilton MD Addendum [...] 07/14/25 1053 DD/ 0952 TD/TT: 07/14/25 1034 Recycling Collections Driver: JOHNATHON [facility] External Provider IMG CT PROCEDURES Edited Result - Final * CT Chest w/ Contrast (07/14/2025 9:52 AM EDT) Anatomical Region Laterality Modality Body, Chest Computed Tomogra phy 07/14/2025 9:52 AM EDT Narrative 07/14/2025 10:49 AM EDT [address] [address] [address] Scan Report Signed Patient: Esther Borrero MR#: [id number] : 1960 Acct:[id number] Age/Sex: 65 / F ADM Date: 07/14/25 Loc: HO.CT Attending Dr: Tiarra Jacobsen MD Ordering Physician: Tiarra Jacobsen MD Date of Service: 07/14/25 Procedure(s): CT chest w IV con Accession Number(s): [id number] cc: Michelle Sheehan MD; Tiarra Jacobsen MD Report Number: [id number]: Total DLP = 795.00 mGy-cm Reason for [...] MD 07/14/2025 10:46 AM EDT Dictated By: oJse Cosme MD Signed By: <Electronically signed by Jose Cosme MD in OV> 07/14/25 1046 DD/ 0952 TD/TT: 07/14/25 1034 [employer] Driver: Procedure Note Donotuseinterpreter, Image - 07/14/[address] [address] [address] Scan Report Signed Patient: Esther BorreroMR#: [id number] : 1960cct:[id number] Age/Sex: 65 / FADM Date: 07/14/25 Loc: HO.CT Attending Dr: Tiarra Jacobsen MD Ordering Physician: Tiarra Jacobsen MD Date of Service: 07/14/25 Procedure(s): CT chest w IV con Accession Number(s): [id number] cc: Michelle Sheehan MD; Tiarra Jacobsen MD Report Number: [id number]: Total DLP = 795.00 mGy-cm Reason for [...] 07/14/25 1046 DD/ 0952 TD/TT: 07/14/25 1034 Recycling Collections Driver: [facility] External Provider IMG CT PROCEDURES Final Result from Last 3 Months Insurance [facility] ONE CARE < 65 [address] [id number] Care Teams Shank Piece Tacker Relationship Specialty Start Date End Date Michelle Sheehan MD [address] [place] [phone] PCP - General Internal Medicine 06/02/25
== END 2025-07-27 13:49 | disposition home or self-care (01) ==
LOC: HO.MRI 13:48
PROVIDERS: Visit Provider Nurse Practitioner Family
DX: C21.0 Malignant neoplasm of anus, unspecified (principal)
CPT/HCPCS: 72197; A9585

== ENCOUNTER 2025-09-04 08:43 | Outpatient (REF) | payer OTHER, SELFPAY ==
--- NOTE | ~2025-09-04 | XR_ITS ---
EXAMINATION: XR SHOULDER, RIGHT CLINICAL INFORMATION: M25.519 - Pain in unspecified shoulder COMPARISON: None available. TECHNIQUE: Three views of the right shoulder. FINDINGS: Normal bone mineralization. No fracture, dislocation, or suspicious bone lesion. Normal alignment. The glenohumeral joint is normal. The AC joint is normal. There is a neutral lateral acromion. No undersurface spurring. The subacromial space is preserved. Remainder of the soft tissue and bony structures appear normal. XR/XR shoulder RT min 2V IMPRESSION: Normal right shoulder. Electronically signed by: Rick Nguyen MD 09/04/2025 10:22 AM OG
--- OUTSIDE RECORDS SUMMARY | 2025-09-07 09:07 | XMS_ITS | Clinical Summary ---
Author Organization [employer] Address [address] [place] [address] Care Team Providers Care Lease Administrator Name Role Phone Michelle Sheehan MD Primary [...] D3) 600-10 MG-MCG tabletIndications :Anal cancer (CMS/HCC) ([facility]) Take 1 tablet by mouth Once [...] will refer her to hematology oncology in [facility] 06/02/2025 Assessment & Plan (06/02/2025 12:07 [...] Team Description 07/23/2025 11:15 AM EST Telemedicine [facility] [address] [place] [phone] Michelle Sheehan MD Anal cancer (CMS/HCC) (HCC) (Primary Dx); Bilateral chronic knee pain; Primary osteoarthritis of right knee; Chronic bursitis of right shoulder 07/23/2025 Travel 07/14/2025 Orders Only [facility] External Provider, [facility] 06/22/2025 Telephone [facility] [address] [place] [phone] Michelle Sheehan MD dec recall 06/08/2025 Telephone [facility] [address] [place] [phone] Michelle Sheehan MD Referral from Last 3 [...] AM EDT Narrative 07/14/2025 10:56 AM EDT [place] [address] [address] Scan Report Signed with Addenda Patient: Esther Borrero MR#: [id number] : 1960 Acct:[id number] Age/Sex: 65 / F ADM Date: 07/14/25 Loc: HO.CT Attending Dr: Tiarra Jacobsen MD Ordering Physician: Tiarra Jacobsen MD Date of Service: 07/14/25 Procedure(s): CT abdomen pelvis w IV con Accession Number(s): [id number] cc: Michelle Sheehan MD; Tiarra Jacobsen MD Report Number: [id number]: Total DLP = 0.00 mGy-cm Reason for [...] 07/14/25 1053 DD/ 0952 TD/TT: 07/14/25 1034 Sales Operations Consultant: JOHNATHON Procedure Note Donotuseinterpreter, Image - 07/23/[address] [place] [address] [address] Scan Report Signed with Addenda Patient: Esther BorreroMR#: [id number] : 1960cct:[id number] Age/Sex: 65 / FADM Date: 07/14/25 Loc: HO.CT Attending Dr: Tiarra Jacobsen MD Ordering Physician: Tiarra Jacobsen MD Date of Service: 07/14/25 Procedure(s): CT abdomen pelvis w IV con Accession Number(s): [id number] cc: Michelle Sheehan MD; Tiarra Jacobsen MD Report Number: [id number]: Total DLP = 0.00 mGy-cm Reason for [...] 07/14/25 1053 DD/ 0952 TD/TT: 07/14/25 1034 Sales Operations Consultant: JOHNATHON [facility] External Provider IMG CT PROCEDURES Edited Result - Final * CT Chest w/ Contrast (07/14/2025 9:52 AM EDT) Anatomical Region Laterality Modality Body, Chest Computed Tomogra phy 07/14/2025 9:52 AM EDT Narrative 07/14/2025 10:49 AM EDT [place] [address] CT Scan Report Signed Patient: Esther Borrero MR#: [id number] : 1960 Acct:[id number] Age/Sex: 65 / F ADM Date: 07/14/25 Loc: HO.CT Attending Dr: Tiarra Jacobsen MD Ordering Physician: Tiarra Jacobsen MD Date of Service: 07/14/25 Procedure(s): CT chest w IV con Accession Number(s): [id number] cc: Michelle Sheehan MD; Tiarra Jacobsen MD Report Number: [id number]: Total DLP = 795.00 mGy-cm Reason for [...] 07/14/25 1046 DD/ 0952 TD/TT: 07/14/25 1034 Sales Operations Consultant: Procedure Note Donotuseinterpreter, Image - 07/14/[address] [address] [address] Scan Report Signed Patient: Esther BorreroMR#: [id number] : 1Acct:[id number] Age/Sex: 65 / FADM Date: 07/14/25 Loc: HO.CT Attending Dr: Tiarra Jacobsen MD Ordering Physician: Tiarra Jacobsen MD Date of Service: 07/14/25 Procedure(s): CT chest w IV con Accession Number(s): [id number] cc: Michelle Sheehan MD; Tiarra Jacobsen MD Report Number: [id number]: Total DLP = 795.00 mGy-cm Reason for [...] 07/14/25 1046 DD/ 0952 TD/TT: 07/14/25 1034 Sales Operations Consultant: [facility] External Provider IMG CT PROCEDURES Final Result from Last 3 Months Insurance [facility] < [address] [id number] Care Teams Lease Administrator Relationship Specialty Start Date End Date Michelle Sheehan MD [address] [place] [phone] PCP - General Internal Medicine 06/02/25
--- OUTSIDE RECORDS SUMMARY | 2025-09-07 09:07 | XMS_ITS | Clinical Summary ---
Author Organization [facility] Address [address] [place] [address] Phone Care Team Providers Care Alterations Sewer Name Role Phone Unavailable Primary Care Provider Unavailabl e Encounters Date Type Department Care Team Description 08/12/2025 1:00 PM EST - 08/12/2025 11:59 PM EST Hospital Encounter [facility] PET Scan [address] [place] [address] Anal cancer (CMS/HCC V24, CMS/HCC [...] Routine 08/12/2025 3:57 PM EST Anal cancer (CMS/[facility] V24, CMS/HCC V28) from Last 3 [...] Signed Date: 08/24/2025 15:59 ET Workstation ID: [id number] Transcribed By: Self Edit Transcribed Date: 08/24/2025 [...] 9th rib. Acute avid lesion within the [id number] body with SUV max of 6.3. Multiple [...] Signed Date: 08/24/2025 15:59 ET Workstation ID: [id number] Transcribed By: Self Edit Transcribed Date: 08/24/2025 15:27 ET Tiarra Jacobsen MD IM NM PROCEDURES Final Result from Last 3 Months Insurance [facility] Member Subscriber Plan / Payer (Ef fective 2025-Present) Name:LARISA BORRERO Relation to Subscriber:Self Name:Larisa Borrero Payer ID:[id number] Group ID:[id number] Type:Not on file Address: [address] [phone]
== END 2025-09-04 08:44 | disposition home or self-care (01) ==
LOC: HO.HOSX 08:43
PROVIDERS: Visit Provider Physician Assistant
DX: M75.101 Unspecified rotator cuff tear or rupture of right shoulder, not specified as traumatic (principal)
CPT/HCPCS: 73030

== ENCOUNTER 2025-09-04 09:49 | Outpatient (AMB) | payer MEDICAID, SELFPAY ==
--- NOTE | 2025-09-04 10:19 | MHC.OFFVIS ---
Vital Signs 09/04/25 10:27 Height 5 ft 2 in Weight 144 lb BMI 26.3 Handedness Right Intake Visit Reasons: CONTACT OFFICER- Right shoulder pain Intake Note: Esther is 65 year old right hand dominant female who presents today for a New Patient appointment with complaints of right shoulder pain. patient reports that she has been having pain for about a year. She states that she was treated in [place] were they gave her injections and they diagnosed her with bursitis in her shoulder. She states that her range of motion is limited and unable to lift her arm. Patient hasn't tried taking medication for the pain. Supervisor Pleating Services: Supervisor Pleating Present (Jeremy ([phone])) Allergies No Known Allergies Allergy (Verified 07/22/25 11:46) HPI Comments Details: History of Present Illness The patient is a 65 year old female presenting for evaluation of right shoulder pain. She reports having had shoulder issues for several years. Her history of treatment includes prior cortisone injections, having received three in the right shoulder. She confirms that the injections provided relief in the past. The patient has done some physical therapy butstates that it worsened her condition. She is right-hand dominant. Pain Description - Location: Right shoulder - Exacerbating Factors: Pain is elicited with passive cross-body adduction of the arm. - Modifying Factors: Prior relief from cortisone injections. [facility] Medical History (Updated 09/04/25 @ 10:45 by Vale Bal PA-C) History of colon cancer History of cancer of bone Colostomy care Squamous cell carcinoma of anal canal Family History Mother Stomach cancer Sister Cancer Sister Breast cancer Maternal Uncle Prostate CA Brother Lupus (systemic lupus erythematosus) Social History (Updated 09/04/25 @ 10:26 by Coby Borrero) Household Members: Family Housing: House Patient Tobacco Use Status: Never used Tobacco service: No Current occupational status: disabled Current occupation: right hand dominant Review of Systems Narrative Review of Systems - Musculoskeletal: Reports pain in the right shoulder. Physical Exam Exam Exam: Physical Exam - Musculoskeletal: Forward flexion and abduction to 90 degrees. External rotation to end range. Able to reach back pocket. Pain with cross-body reach. Significant weakness with empty can due to pain. Negative drop arm. NVI. Vital Signs: BMI result Body Mass Index 26.3 Const General: cooperative, healthy appearing and no acute distress Resp Effort & Inspection: normal respiratory effort and able to speak in complete sentences Psych Appearance: grossly normal Mental Status: mental status grossly normal Attitude: cooperative Assessment & Plan Assessment & Plan (1) Painful arc syndrome of right shoulder: Code(s): M75.101 - Unspecified rotator cuff tear or rupture of right shoulder, not specified as traumatic Category: Medical Plan 1. Painful arc syndrome right shoulder: M75.101 The patient was offered a cortisone injection in right shoulder. The patient was explained the risks, benefits, and alternatives to receiving this injection. After receiving consent for the injection, the patient had the procedure done while in the office today. The patient tolerated the procedure well with no complications. The risks, benefits, and alternatives to a corticosteroid injection were discussed with the patient, including the potential benefits of decreased inflammation and pain, improved function, and diagnostic value. Risks were reviewed, including post-injection flare, skin or fat atrophy, transient facial flushing, temporary elevation in blood glucose, bruising, and rare but serious complications such as infection, tendon weakening or rupture, and cartilage damage with repeated injections. Procedure-related discomfort and possible vasovagal symptoms were also explained. Alternatives were reviewed, including NSAIDs, physical therapy, activity modification, bracing, ice/heat, weight management, hyaluronic acid injections when appropriate, PRP or other orthobiologics, oral steroids, surgery depending on pathology, and observation. The patient verbalized understanding and elected to proceed. After receiving consent for the injection, the patient had the procedure done while in the office today. The patient tolerated the procedure well with no complications. Follow-up will be PRN, or sooner if needed X-rays of the left shoulder which were obtained while in the office today and were reviewed by me, Vale Bal PA-C, revealed no acute fracture or dislocation. Consent The patient verbally consented to proceed with a cortisone injection into her right shoulder. Patient was informed and verbally consented to the use of an ambient scribe for clinic note documentation during this visit. Orders: Orders XR shoulder RT min 2V Today M25.519 - Pain in unspecified shoulder Coding Level of Care Code New Pt Level 4 (01391) Add On Problem Visit Only Diagnoses Painful arc syndrome of right shoulder M75.101
[2025-09-04 10:27] VITALS: BMI 26.3
--- OUTSIDE RECORDS SUMMARY | 2025-09-04 10:47 | XMS_ITS | Clinical Summary ---
Author Organization [employer] Address [address] [facility] [address] [place] [address] Care Team Providers Care Performance Improvement Consultant Name Role Phone Michelle Sheehan MD Primary [...] D3) 600-10 MG-MCG tabletIndications :Anal cancer (CMS/HCC) ([facility]) Take 1 tablet by mouth Once per [...] will refer her to hematology oncology in [facility] 06/02/2025 Assessment & Plan (06/02/2025 12:07 PM [...] Team Description 07/23/2025 11:15 AM EST Telemedicine [facility] [address] [place] [address] Michelle Sheehan MD Anal cancer (CMS/HCC) (HCC) (Primary Dx); Bilateral chronic knee pain; Primary osteoarthritis of right knee; Chronic bursitis of right shoulder 07/23/2025 Travel 07/14/2025 Orders Only [facility] External Provider, [facility] 06/22/2025 Telephone [facility] [address] [place] [address] Michelle Sheehan MD dec recall 06/08/2025 Telephone [facility] [address] [place] [address] Michelle Sheehan MD Referral from Last 3 Months Social History Tobacco [...] with others, in a hotel, in a fpc, living outside on the street, on a [...] of 2) 2011 COVID-19 Vaccine (1 - 2024-2 6 season) 2025 Influenza Vaccine (#1) 2025 Tobacco [...] AM EDT Narrative 07/14/2025 10:56 AM EDT [place] [address] CT Scan Report Signed with Addenda Patient: Esther Borrero MR#: [id number] : 1960 Acct:[id number] Age/Sex: 65 / F ADM Date: 07/14/25 Loc: HO.CT Attending Dr: Tiarra Jacobsen MD Ordering Physician: Tiarra Jacobsen MD Date of Service: 07/14/25 Procedure(s): CT abdomen pelvis w IV con Accession Number(s): [id number] cc: Michelle Sheehan MD; Tiarra Jacobsen MD Report Number: [id number]: Total DLP = 0.00 mGy-cm Reason for [...] by: Korin Hamilton MD 07/23/2025 02:05 PM EST Addendum Dictated By: Korin Hamilton MD Addendum [...] 07/14/25 1053 DD/ 0952 TD/TT: 07/14/25 1034 Product Handler: JOHNATHON Procedure Note Donotuseinterpreter, Image - 07/23/[address] [place] [address] [address] Scan Report Signed with Addenda Patient: Esther BorreroMR#: [id number] : 1960cct:[id number] Age/Sex: 65 / FADM Date: 07/14/25 Loc: HO.CT Attending Dr: Tiarra Jacobsen MD Ordering Physician: Tiarra Jacobsen MD Date of Service: 07/14/25 Procedure(s): CT abdomen pelvis w IV con Accession Number(s): [id number] cc: Michelle Sheehan MD; Tiarra Jacobsen MD Report Number: [id number]: Total DLP = 0.00 mGy-cm Reason for [...] by: Korin Hamilton MD 07/23/2025 02:05 PM EST Addendum Dictated By: Korin Hamilton MD Addendum [...] 07/14/25 1053 DD/ 0952 TD/TT: 07/14/25 1034 Product Handler: JOHNATHON [facility] External Provider IMG CT PROCEDURES Edited Result - Final * CT Chest w/ Contrast (07/14/2025 9:52 AM EDT) Anatomical Region Laterality Modality Body, Chest Computed Tomogra phy 07/14/2025 9:52 AM EDT Narrative 07/14/2025 10:49 AM EDT [place] [address] CT Scan Report Signed Patient: Esther Borrero MR#: [id number] : 1960 Acct:[id number] Age/Sex: 65 / F ADM Date: 07/14/25 Loc: HO.CT Attending Dr: Tiarra Jacobsen MD Ordering Physician: Tiarra Jacobsen MD Date of Service: 07/14/25 Procedure(s): CT chest w IV con Accession Number(s): [id number] cc: Michelle Sheehan MD; Tiarra Jacobsen MD Report Number: [id number]: Total DLP = 795.00 mGy-cm Reason for [...] 07/14/25 1046 DD/ 0952 TD/TT: 07/14/25 1034 Product Handler: Procedure Note Donotuseinterpreter, Image - 07/14/[address] [address] [address] Scan Report Signed Patient: Esther BorreroMR#: MM [id number] : 1Acct:[id number] Age/Sex: 65 / FADM Date: 07/14/25 Loc: HO.CT Attending Dr: Tiarra Jacobsen MD Ordering Physician: Tiarra Jacobsen MD Date of Service: 07/14/25 Procedure(s): CT chest w IV con Accession Number(s): [id number] cc: Michelle Sheehan MD; Tiarra Jacobsen MD Report Number: [id number]: Total DLP = 795.00 mGy-cm Reason for [...] 07/14/25 1046 DD/ 0952 TD/TT: 07/14/25 1034 Product Handler: [facility] External Provider IMG CT PROCEDURES Final Result from Last 3 Months Insurance [facility] ONE CARE < 65 [address] [id number] Care Teams Performance Improvement Consultant Relationship Specialty Start Date End Date Michelle Sheehan MD [address] [place] [address] PCP - General Internal Medicine 06/02/25
--- OUTSIDE RECORDS SUMMARY | 2025-09-04 10:47 | XMS_ITS | Clinical Summary ---
Author Organization [facility] Address [address] [place] [address] Phone Care Team Providers Care Decision Science Analyst Name Role Phone Unavailable Primary Care Provider Unavailabl e Encounters Date Type Department Care Team Description 08/12/2025 1:00 PM EST - 08/12/2025 11:59 PM EST Hospital Encounter [facility] PET Scan [address] [place] [address] Anal cancer (CMS/HCC V24, CMS/HCC V28) Discharge Disposition: Home or Self Care from Last 3 Months Social History Tobacco Use Types Packs/Day Years Used Date Smoking Tobacco: Never Assessed Comments Unknown Sex and Gender Information Value Date Recorded Sex Assigned at Not on file Legal Sex Female 9:07 AM EST Gender Identity Not on file Sexual Orientation Not on file Plan of Treatment Health Maintenance Due Date Last Done Comments Breast Cancer Screening 1960 Colorectal Cancer Screening: Colonoscopy 1960 DTaP,Tdap,and Td Vaccines (1 - Tdap) 1980 Cervical Cancer Screening: P ap Smear 1982 Pneumococcal Vaccine: 50+ Ye ars (1 of 1 - PCV) 2011 Zoster Vaccines (1 of 2) 2011 Depression Screening 09/17/2024 COVID-19 Vaccine (1 - 2024-2 6 season) 2025 Influenza Vaccine (#1) 2025 HIV Screening 08/11/2025 Hepatitis C Screening 08/11/2025 Social Influencers of Health Screening 08/11/2025 RSV Immunization Adult Patie nts (1 - 1-dose 75+ series) 2036 HIB [...] on patient's age to complete this topic MMR Vaccines Aged Out No longer eligi ble based on patient's age to complete this topic Meningococcal ACWY Vaccine Aged Out N o longer eligible based on patient's age to complete this topic Meningococcal B Vaccine Aged Out No l onger eligible based on patient's age to complete this topic RSV Immunization Patients Un janki 20 months Aged Out No longer eligible b ased on patient's age to complete this topic Varicella Vaccines Aged Out No longer eligible based on patient's age to complete this topic Procedures Procedure Name Priority Date/Time Associated Diagnosis Comments PET CT SKULL TO MID THIGH SUBSEQUENT Routine 08/12/2025 3:57 PM EST Anal cancer (CMS/[facility] V24, CMS/HCC V28) from Last 3 Months Results * PET CT Skull to Mid Thigh Subsequent (08/12/2025 3:57 PM EST) Anatomical Region Laterality Modality Body Radiographic Patricia ging 08/24/2025 3:27 PM EST Impressions 08/24/2025 3:59 PM EST Metabolically active multifocal osseous metastatic disease. Metabolically active cervical, thoracic and abdominal lymphadenopathy. Metabolically active left rectal mass. Small metabolically active focus within the right upper lobe without discrete nodule. Nonspecific bilateral mild hilar metabolic activity. Metabolically active left parotid lesion with adjacent small avid level 2 cervical node. Consider primary parotid lesion versus metastatic disease. -------- FINAL REPORT -------- Dictated By: Monica Elise Dictated Date: 08/24/2025 15:27 ET Assigned Physician: Monica Elise Reviewed and Electronically Signed By: Monica Elise Signed Date: 08/24/2025 15:59 ET Workstation ID: [id number] Transcribed By: Self Edit Transcribed Date: 08/24/2025 15:27 ET Narrative 08/24/2025 3:59 PM EST INDICATION: Anal carcinoma, subsequent treatment strategy Prior relevant studies: Outside CT scan of the chest, abdomen and pelvis dated July 06, 2025 Radiopharmaceutical: 9.0 mCi of F-18 FDG IV. Blood glucose: 90 mg/dl. PROCEDURE: Routine body FDG PET-CT imaging was performed from the skull base to the mid thighs and reconstructed in axial, coronal, and sagittal planes at the computer workstation with fused data from both the PET imaging study and attenuation correction CT. The CT portion of the examination was done strictly for attenuation correction and is not a true diagnostic CT examination. CTDI: 11.43 mGy FINDINGS: HEAD AND NECK: FDG avid left parotid lesion noted within the deeper aspect of the gland adjacent to the angle of the mandible with SUV max of 7.2. Mildly FDG avid small left sided level 2 node with SUV max of 3.6. FDG avid right-sided supraclavicular node SUV max of 13.4. THORAX: FDG avid right axillary nodes SUV max up to 20.2. FDG avid focus within the right upper lobe with SUV max of 3.3 is nonspecific without discrete nodule. Uptake appears associated with a right upper lobe pulmonary artery branch. Mild activity within the right infrahilar region with SUV max of 3.8 and within the left hilum up to 2.9. ABDOMEN/PELVIS: FDG avid lymph node located between the proximal pancreatic body and pyloric aspect of the stomach with SUV max of 8. Increased FDG activity noted along the right side at the lower L4 level with SUV max of 8.8 is located between the anterior loss of the vertebral body and the IVC bifurcation. No associated enlarged node with small osteophyte noted along the vertebral body. Left-sided rectal mass with SUV max up to 7.3. MUSCULOSKELETAL: Multifocal osseous FDG avid lesions are noted with associated faint sclerotic changes. Lesions are noted within both clavicles, shoulders and scapula. SUV max up to 6.9 within the distal right clavicle and 10.1 within the right humeral head and 10.4 in the left humeral head. Activity noted within the T1 vertebral body including the posterior elements with SUV max of 16.4. Small scattered lesions are noted within multiple transverse processes and lamina as well as multiple ribs with SUV max of 6.9 within posterior right 9th rib. Acute avid lesion within the L5 vertebral body with SUV max of 6.3. Multiple FDG avid lesion noted within the iliac bones as well as faint activity within the left sacrum. Lesion noted within both acetabulum as well as within the right femoral head neck junction with SUV max of 6.6. Minimal activity within the intertrochanteric portion of the left femur with SUV max of 1.9. FDG avid lesions noted within the proximal right femoral shaft with SUV max of 5.2. Procedure Note Monica Elise MD - 08/24/2025 INDICATION: Anal carcinoma, subsequent treatment strategy Prior relevant studies: Outside CT scan of the chest, abdomen and pelvisdated July 06, 2025 Radiopharmaceutical: 9.0 mCi of F-18 FDG IV. Blood glucose: 90 mg/dl. PROCEDURE: Routine body FDG PET-CT imaging was performed from the skullbase to the mid thighs and reconstructed in axial, coronal, and sagittalplanes at the computer workstation with fused data from both the PETimaging study and attenuation correction CT. The CT portion of theexamination was done strictly for attenuation correction and is not a truediagnostic CT examination. CTDI: 11.43 mGy FINDINGS: HEAD AND NECK: FDG avid left parotid lesion noted within the deeper aspectof the gland adjacent to the angle of the mandible with SUV max of 7.2. Mildly FDG avid small left sided level 2 node with SUV max of 3.6. FDG avid right-sided supraclavicular node SUV max of 13.4. THORAX: FDG avid right axillary nodes SUV max up to 20.2. FDG avid focus within the right upper lobe with SUV max of 3.3 isnonspecific without discrete nodule. Uptake appears associated with aright upper lobe pulmonary artery branch. Mild activity within the right infrahilar region with SUV max of 3.8 andwithin the left hilum up to 2.9. ABDOMEN/PELVIS: FDG avid lymph node located between the proximalpancreatic body and pyloric aspect of the stomach with SUV max of 8. Increased FDG activity noted along the right side at the lower L4 levelwith SUV max of 8.8 is located between the anterior loss of the vertebralbody and the IVC bifurcation. No associated enlarged node with smallosteophyte noted along the vertebral body. Left-sided rectal mass with SUV max up to 7.3. MUSCULOSKELETAL: Multifocal osseous FDG avid lesions are noted withassociated faint sclerotic changes. Lesions are noted within bothclavicles, shoulders and scapula. SUV max up to 6.9 within the distalright clavicle and 10.1 within the right humeral head and 10.4 in the lefthumeral head. Activity noted within the T1 vertebral body including the posteriorelements with SUV max of 16.4. Small scattered lesions are noted withinmultiple transverse processes and lamina as well as multiple ribs with SUVmax of 6.9 within posterior right 9th rib. Acute avid lesion within the [id number] body with SUV max of 6.3. Multiple FDG avid lesion noted within the iliac bones as well as faintactivity within the left sacrum. Lesion noted within both acetabulum aswell as within the right femoral head neck junction with SUV max of 6.6.Minimal activity within the intertrochanteric portion of the left femurwith SUV max of 1.9. FDG avid lesions noted within the proximal right femoral shaft with SUVmax of 5.2. IMPRESSION: Metabolically active multifocal osseous metastatic disease. Metabolically active cervical, thoracic and abdominal lymphadenopathy. Metabolically active left rectal mass. Small metabolically active focus within the right upper lobe withoutdiscrete nodule. Nonspecific bilateral mild hilar metabolic activity. Metabolically active left parotid lesion with adjacent small avid level 2cervical node. Consider primary parotid lesion versus metastaticdisease. -------- FINAL REPORT -------- Dictated By: Monica Elise Dictated Date: 08/24/2025 15:27 ET Assigned Physician: Monica Elise Reviewed and Electronically Signed By: Monica Elise Signed Date: 08/24/2025 15:59 ET Workstation ID: [id number] Transcribed By: Self Edit Transcribed Date: 08/24/2025 15:27 ET Tiarra Jacobsen MD IM NM PROCEDURES Final Result from Last 3 Months Insurance [facility] Member Subscriber Plan / Payer (Ef fective 2025-Present) Name:LARISA BORRERO Relation to Subscriber:Self Name:Larisa Borrero Payer ID:[id number] Group ID:[id number] Type:Not on file Address: [address] [phone]
== END 2025-09-04 10:55 | disposition home or self-care (01) ==
LOC: HO.HOS 09:49
PROVIDERS: PCP Internal Medicine; Visit Provider Physician Assistant
DX: M75.101 Unspecified rotator cuff tear or rupture of right shoulder, not specified as traumatic (principal)
CPT/HCPCS: 20610; 99204

== ENCOUNTER → 2025-09-04 10:04 | Outpatient (BNV) | payer OTHER, SELFPAY | PROVIDERS: Visit Provider Radiology Diagnostic Radiology | DX: M25.511 Pain in right shoulder (principal) | CPT/HCPCS: 73030 ==